=== PATIENT | female | born 1945 | race Caucasian/White ===

== ENCOUNTER 2016-10-26 05:50 | Day surgery (SDC) | payer MEDICARE, OTHER, MEDICAID ==
[2016-10-26] MEDS ORDERED: Sodium Chloride 0.9% 10 ML Syringe FLUSH PRN (06:00)
[2016-10-26] MEDS ORDERED: Dextrose 5%-0.45% NaCl 1,000 ML IV SCH (06:00)
[2016-10-26] MEDS ORDERED: fentaNYL 100 MCG/2 ML SDV ONE (06:17)
[2016-10-26] MEDS ORDERED: Midazolam 1 MG/ML 2 ML SDV ONE (06:17)
[2016-10-26] MEDS ORDERED: fentaNYL 100 MCG/2 ML SDV IV ONE ×3 (07:05→08:29)
[2016-10-26] MEDS ORDERED: Midazolam 1 MG/ML 2 ML SDV IV ONE ×6 (07:06→08:29)
--- NOTE | 2016-10-26 08:55 | OR ---
DATE: 10/26/2016 PROCEDURE: Total colonoscopy, NBI, and cold snare polypectomy. INSTRUMENT USED: CF-H180AL Olympus video colonoscope. PREMEDICATIONS: Fentanyl 100 mcg intravenous, Versed 3.5 mg intravenous. Nasal O2 cannula. The procedure was done under pulse oximetry, BP recording, and secured entrance monitor. INDICATION: The patient with rectal bleeding. Colonoscopic examination is done for detection of any polypoid lesions and removal, endoscopic hemostasis therapy if needed. DESCRIPTION OF PROCEDURE: Initial rectal exam was unremarkable. Rigid anoscopy showed small internal hemorrhoids without bleeding from them. The colonoscope was passed with ease up to the ileocecal area, photographs were taken of the normal appearing cecum, identified by double-bulged ileocecal folds. No bleeding was noted from any of the visualized areas at the commencement of the examination. There was quite a bit of liquid and some solid fecal material requiring aspiration. No stricture. No vascular ectasia. No large isolated ulcerations seen. No evidence of diffuse inflammatory bowel disease in the form of friability, contact bleeding, or ulcerations. Probing the proximal sides of folds and flexures, using adequate distention and clearing up the stool material, withdrawal of the scope was made. In the area of proximal transverse colon, a 3 mm sized benign-appearing polyp was noted, NBI views were obtained, photographs were taken, cold snare polypectomy was done, the tissue was retrieved and sent for histopathology. No bleeding was noted from any of the visualized areas at the completion of examination. IMPRESSION: 1. Internal hemorrhoids. 2. Diminutive colonic polyp. The patient tolerated the procedure well. [facility] /[id number]
[2016-10-26 09:04] VITALS: BP 119/56
--- NOTE | 2016-10-26 10:31 | LETTER ---
10/26/2016 HEIDI Diaz [facility] [address] [place] [address] RE: VEE LEE : 1945 Dear Ms. Fraga: Ms. Vee Lee had colonoscopic examination done this morning and she tolerated the procedure well. I herewith send a copy of the endoscopy note and photographs for your review. Thank you. Sincerely, [facility] /[id number]
== END 2016-10-26 09:32 | disposition home or self-care (01) ==
LOC: DL.ENDO 05:50
PROVIDERS: ATTEND Internal Medicine Gastroenterology
DX: D12.3 Benign neoplasm of transverse colon (principal); K64.8 Other hemorrhoids; E66.9 Obesity, unspecified; I10 Essential (primary) hypertension; E78.5 Hyperlipidemia, unspecified; K21.9 Gastro-esophageal reflux disease without esophagitis; E03.9 Hypothyroidism, unspecified; G43.909 Migraine, unspecified, not intractable, without status migrainosus; I48.91 Unspecified atrial fibrillation; F17.210 Nicotine dependence, cigarettes, uncomplicated; F32.9 Major depressive disorder, single episode, unspecified; Z95.0 Presence of cardiac pacemaker; Z90.49 Acquired absence of other specified parts of digestive tract; Z90.710 Acquired absence of both cervix and uterus; Z88.0 Allergy status to penicillin; Z79.01 Long term (current) use of anticoagulants; Z79.899 Other long term (current) drug therapy; Z80.0 Family history of malignant neoplasm of digestive organs
CPT/HCPCS: 45385; J2250; J3010; J7042; 88305

== ENCOUNTER 2016-10-27 05:27 | Day surgery (SDC) | payer MEDICARE, MEDICAID, OTHER ==
[~2016-10-27 05:27] MED LIST: Dextrose 5%-0.45% NaCl 1,000 ML IV SCH; Sodium Chloride 0.9% 10 ML Syringe FLUSH PRN
[2016-10-27] MEDS ORDERED: Midazolam 1 MG/ML 2 ML SDV ONE (05:45)
[2016-10-27] MEDS ORDERED: fentaNYL 100 MCG/2 ML SDV ONE (05:45)
[2016-10-27] MEDS ORDERED: fentaNYL 100 MCG/2 ML SDV IV ONE ×3 (06:23→06:47)
[2016-10-27] MEDS ORDERED: Midazolam 1 MG/ML 2 ML SDV IV ONE ×3 (06:24→06:47)
[2016-10-27 08:50] VITALS: BP 103/41
--- NOTE | 2016-10-27 09:02 | OR ---
DATE: 10/27/2016 PROCEDURE: Esophagogastroduodenoscopy and multiple pinch biopsies. INSTRUMENT USED: GIF-Q180 Olympus video panendoscope. PREMEDICATIONS: No oral topical anesthesia used. Fentanyl 100 mcg intravenous, Versed 2 mg intravenous. Nasal O2 cannula. The procedure was done under pulse oximetry, BP recording, and helper coordinator. INDICATION: The patient with long-standing heartburn, on PPI. Esophagogastroduodenoscopy is performed for detection of any active erosive lesions, Trevino esophagus and/or malignancy also under consideration, H. pylori status to be determined, endoscopic hemostasis therapy if needed. Has Hemoccult positive stools with colonoscopy negative for any bleeding areas. The scope was passed with ease. Adequate visualization of the esophagus was made from proximal to distal areas. No upper esophageal lesions identified. No distal esophageal stricture. No uphill or downhill esophageal varices. No Carmen- Son tear. No evidence of erosive esophagitis by Norman criteria. No esophageal polyp or tumor mass identified. Z-line was seen at around 40 cm distal to the oral verge, configuration consistent with grade 1 by ZAP classification. No proximal gastric varices noted. Gastric fundus examination by retroflexion showed no polypoid lesions. No gastric ulcer, malignant mass, or vascular ectasia identified. Duodenal bulb showed no ulcer. Visualized second part of the duodenum was unremarkable. Multiple pinch biopsies were taken from the gastric antrum and proximal body and sent for PyloriTek test for H. pylori, and if negative in an hour, tissue is to be sent for histopathology. No bleeding was noted from any of the visualized areas at the completion of the examination. Photographs were taken of the duodenal bulb, gastric antrum, fundus, and distal esophagus. IMPRESSION: Normal study. The patient tolerated the procedure well. [facility] /[id number] MARY
--- NOTE | 2016-10-27 10:04 | LETTER ---
10/27/2016 Tati Fraga NP [facility] [address] [place] [address] RE: VEE LEE BRANDON : 1945 Dear Ms. Baltazarfrancisco: Ms. Vee Lee had esophagogastroduodenoscopy done this morning, and she tolerated the procedure well. I herewith send a copy of the endoscopy note and photographs for your review. Thank you Sincerely, [facility] /[id number]
== END 2016-10-27 08:40 | disposition home or self-care (01) ==
LOC: DL.ENDO 05:27
PROVIDERS: ATTEND Internal Medicine Gastroenterology
DX: R12 Heartburn (principal); I10 Essential (primary) hypertension; E78.5 Hyperlipidemia, unspecified; E03.9 Hypothyroidism, unspecified; Z95.0 Presence of cardiac pacemaker; E66.9 Obesity, unspecified; Z88.0 Allergy status to penicillin; F17.210 Nicotine dependence, cigarettes, uncomplicated; Z90.49 Acquired absence of other specified parts of digestive tract; Z90.710 Acquired absence of both cervix and uterus; Z79.01 Long term (current) use of anticoagulants; F32.9 Major depressive disorder, single episode, unspecified; Z79.899 Other long term (current) drug therapy
CPT/HCPCS: 43239; 87077; 88305; J2250; J3010; J7042

== ENCOUNTER 2018-09-23 09:32 | Emergency (ER) | payer MEDICARE, OTHER ==
[2018-09-23 09:47] VITALS: BP 160/84; PULSE 60
[2018-09-23 10:15] LABS: ANION GAP 16.6; CHLORIDE,CL 106 mmol/L (101-111); SODIUM,NA 139 mmol/L (135-145)
--- NOTE | 2018-09-23 10:22 | EDM.PDOC ---
ED HPI GENERAL MEDICAL PROBLEM - General Stated Complaint: SERVERE CHEST PAIN [id number] Time Seen by Provider: 09/23/18 10:10 Source of Information: Reports: Patient History Limitations: Reports: No Limitations - History of Present Illness INITIAL COMMENTS - FREE TEXT/NARRATIVE: This 73 yo female patient reports to the ED with a 3 day history of left sided chest pain. The patient reports prior to the initial onset of pain, she was cleaning out her Jeep and doing things in the garage. The patient reports over the night her pain became unbearable. The patient did take Tylenol and currently reports her pain is a 4/10. 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 Left Chest Pain Score (Numeric/FACES): 5 - Related Data Allergies Allergy/AdvReac Type Severity Reaction Status Date / Time Penicillins Allergy Swelling Verified 10/27/16 05:30 Home Meds: Home Meds Amitriptyline [Elavil] 25 mg PO BEDTIME 06/19/15 [History] Levothyroxine 125 mcg PO DAILY 06/19/15 [History] [place]-3/DHA/Epa/Fish Oil [[place] 3 500 Softgel] 1 tab PO BID 06/19/15 [History] Omeprazole 20 mg PO DAILY 06/19/15 [History] Potassium Chloride 10 meq PO TID 06/19/15 [History] Verapamil [Verelan] 240 mg PO DAILY 06/19/15 [History] Warfarin [Coumadin] 2 mg PO BEDTIME 06/19/15 [History] atorvaSTATin [Lipitor] 40 mg PO BEDTIME 06/19/15 [History] Propranolol [Inderal LA] 160 mg PO DAILY 10/25/16 [History] Loratadine 10 mg PO DAILY 09/23/18 [History] rOPINIRole [Requip] 0.5 mg PO BEDTIME 09/23/18 [History] Past Medical History HEENT History: Reports: Impaired Vision Cardiovascular History: Reports: Afib, High Cholesterol, Hypertension, Pacemaker Respiratory History: Reports: None Gastrointestinal History: Reports: GERD Genitourinary History: Reports: None 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: Musculoskeletal History: Reports: Back Pain, Chronic, Other (See Below) Other Musculoskeletal History: HX OF LEFT ARM SURGERY Neurological History: Reports: None Psychiatric History: Reports: Anxiety, Depression Endocrine/Metabolic History: Reports: Hypothyroidism Hematologic History: Reports: None Immunologic History: Reports: None Oncologic (Cancer) History: Reports: None Dermatologic History: Reports: None - Infectious Disease History Infectious Disease History: Reports: Measles, Mumps - Past Surgical History HEENT Surgical History: Reports: None Cardiovascular Surgical History: Reports: Pacer Respiratory Surgical History: Reports: None GI Surgical History: Reports: Appendectomy, Cholecystectomy, Colonoscopy Female Surgical History: Reports: Hysterectomy Endocrine Surgical History: Reports: None Oncologic Surgical History: Reports: Biopsy of Breast Social & Family History - Family History Family Medical History: Noncontributory HEENT: - Tobacco Use Smoking Status *Q: Current Every Day Smoker Years of Tobacco use: 40 Packs/Tins Daily: 1 - Caffeine Use Caffeine Use: Reports: Tea - Recreational Drug Use Recreational Drug Use: No ED ROS GENERAL - Review of Systems Review Of Systems: ROS reveals no pertinent complaints other than HPI. ED EXAM, GENERAL - Physical Exam Exam: See Below Exam Limited By: No Limitations General Appearance: Alert, WD/WN, Moderate Distress, Obese Eye Exam: Bilateral Eye: EOMI, Normal Inspection, PERRL Ears: Normal External Exam, Normal Canal, Hearing Grossly Normal, Normal TMs Nose: Normal Inspection, Normal Mucosa, No Blood Throat/Mouth: Normal Inspection, Normal Lips, Normal Teeth, Normal Gums, Normal Oropharynx, Normal Voice, No Airway Compromise Head: Atraumatic, Normocephalic Neck: Normal Inspection, Supple, Non-Tender, Full Range of Motion Respiratory/Chest: No Respiratory Distress, Lungs Clear, Normal Breath Sounds, No Accessory Muscle Use, Chest Non-Tender Cardiovascular: Normal Peripheral Pulses, Regular Rate, Rhythm, No Edema, No Gallop, No JVD, No Murmur, No Rub GI/Abdominal: Normal Bowel Sounds, Soft, Non-Tender, No Organomegaly, No Distention, No Abnormal Bruit, No Mass (Female) Exam: Deferred Rectal (Female) Exam: Deferred Back Exam: Normal Inspection, Full Range of Motion, NT Extremities: Normal Inspection, Normal Range of Motion, Non-Tender, Normal Capillary Refill, No Pedal Edema Neurological: Alert, Oriented, CN II-XII Intact, Normal Cognition, Normal Gait, Normal Reflexes, No Motor/Sensory Deficits Psychiatric: Normal Affect, Normal Mood Skin Exam: Warm, Dry, Intact, Normal Color, No Rash Lymphatic: No Adenopathy Course - Vital Signs Last Recorded V/S: Last Vital Signs Temp 36.7 C 09/23/18 09:45 Pulse 60 09/23/18 09:45 Resp 12 09/23/18 09:45 BP 160/84 H 09/23/18 09:45 Pulse Ox 96 09/23/18 09:45 - Orders/Labs/Meds Orders: Active Orders 24 hr Category Date Time Status EKG Documentation Completion [RC] URGENT Care 09/23/18 09:33 Ordered Labs: Laboratory Tests 09/23/18 09/23/18 09/23/18 Range/Units 09:38 09:38 09:38 WBC 8.0 (5.0-10.0) 10^3/uL RBC 5.05 (4.2-5.4) 10^6/uL Hgb 15.6 (12.0-16.0) g/dL Hct 46.7 (37.0-47.0) % MCV 92.5 D (80-100) fL MCH 30.9 (27.0-34.0) pg MCHC 33.4 (33.0-35.0) g/dL Plt Count 266 (150-450) 10^3/uL Neut % (Auto) 50.3 (42.2-75.2) % Lymph % (Auto) 34.8 (20.5-50.1) % [place] % (Auto) 12.0 H (2-8) % Eos % (Auto) 2.6 (1.0-3.0) % Baso % (Auto) 0.3 (0.0-1.0) % Add Manual Diff Yes Neutrophils % (Manual) 60 (42-75) % Lymphocytes % (Manual) 23 (20-50) % Atypical Lymphs % Not Reportable Monocytes % (Manual) 16 H (2-8) % Eosinophils % (Manual) 1 (1-3) % PT 24.9 H (9.0-12.0) SEC INR 2.6 H (0.9-1.2) D-Dimer, Quantitative < 100 (0-400) ng/mL Sodium 139 (135-145) mmol/L Potassium 4.6 (3.6-5.0) mmol/L Chloride 106 (101-111) mmol/L Carbon Dioxide 21.0 (21.0-31.0) mmol/L Anion Gap 16.6 BUN 12 (7-18) mg/dL Creatinine 0.7 (0.6-1.3) mg/dL Est Cr Clr Drug Dosing 61.81 mL/min Estimated GFR (MDRD) > 60 BUN/Creatinine Ratio 17.14 Glucose 119 H (74-105) mg/dL Calcium 8.9 (8.4-10.2) mg/dl Total Bilirubin 1.6 H (0.2-1.0) mg/dL AST 37 (10-42) IU/L ALT 21 (10-60) IU/L Alkaline Phosphatase 105 (42-121) IU/L Troponin I < 0.02 (0.00-0.02) ng/ml Total Protein 7.7 (6.7-8.2) g/dl Albumin 4.1 (3.2-5.5) g/dl Globulin 3.6 Albumin/Globulin Ratio 1.14 Departure - Departure Time of Disposition: 11:05 Disposition: Home, Self-Care 01 Condition: Fair Clinical Impression: Left-sided chest wall pain, Non-cardiac chest pain Instructions: Chest Wall Pain, [id number], Nonspecific Chest Pain, Easy-to- Read Forms: ED Department Discharge Care Plan Goals: The patient was advised of the examination, lab, EKG and x-ray results during the visit. The patient was discharged with a script for [place] (5/325) #8 to take 1 by mouth every 6 hours as needed for pain. If the patient has any additional symptoms or concerns, the patient should either return to the emergency department or visit her primary care facility. - My Orders Last 24 Hours: My Active Orders 09/23/18 09:33 EKG Documentation Completion [RC] URGENT - Assessment/Plan Last 24 Hours: My Active Orders 09/23/18 09:33 EKG Documentation Completion [RC] URGENT
--- NOTE | 2018-09-23 10:40 | CR ---
Clinical history: 73-year-old female chest pain. Interpretation: Upright AP portable chest film with cardiac pacemaker and external pvc monitor leads (pacer leads appear intact). Necklace artifact. Normal cardiac silhouette without cephalization of flow, signs of alveolar edema or dependent pleural fluid accumulation. Reasonable inspiratory effort obese female. No lung mass or hilar lymphadenopathy. No lobar pneumonia, atelectasis or collapse. No pneumothorax. CONCLUSION: Cardiac pacemaker. No acute cardiopulmonary abnormality.
== END 2018-09-23 11:17 | disposition home or self-care (01) ==
LOC: DL.ED 09:32
DX: R07.89 Other chest pain (principal); F17.210 Nicotine dependence, cigarettes, uncomplicated; I48.91 Unspecified atrial fibrillation; I10 Essential (primary) hypertension; E78.00 Pure hypercholesterolemia, unspecified; K21.9 Gastro-esophageal reflux disease without esophagitis; F41.9 Anxiety disorder, unspecified; F32.9 Major depressive disorder, single episode, unspecified; Z79.899 Other long term (current) drug therapy; Z88.0 Allergy status to penicillin
CPT/HCPCS: 36415; 71045; 80053; 84484; 85025; 85379; 85610; 93005; 99284; 99285-25

== ENCOUNTER 2019-10-26 14:28 | Emergency (ER) | payer MEDICARE, OTHER ==
[2019-10-26 14:36] VITALS: BP 164/79; PULSE 70
--- NOTE | 2019-10-26 15:34 | EDM.PDOC ---
Scribed by Annika Ireland 10/26/19 1533 for Manju Plaza NP ED HPI GENERAL MEDICAL PROBLEM - General Chief Complaint: Lower Extremity Injury/Pain Stated Complaint: right leg pain Time Seen by Provider: 10/26/19 14:48 Source of Information: Reports: Patient, RN, RN Notes Reviewed History Limitations: Reports: No Limitations - History of Present Illness INITIAL COMMENTS - FREE TEXT/NARRATIVE: Patient presents to ER with complaint of pain in right knee, right ankle, right arm/shoulder pain. Patient states she fell off a 2 step ladder on ( possibly Sunday). States pain to right arm is improving. Right knee is improving, but not the right ankle. No history of blood clots. Has been ambulating on the right ankle. Denies hitting head or getting knocked out. States lost her balance, did not get dizzy when she fell. 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 Right Ankle Pain Score (Numeric/FACES): 5 - Related Data Allergies Allergy/AdvReac Type Severity Reaction Status Date / Time Penicillins Allergy Swelling Verified 10/26/19 14:43 Home Meds: Home Meds Amitriptyline [Elavil] 25 mg PO BEDTIME 06/19/15 [History] Levothyroxine 125 mcg PO DAILY 06/19/15 [History] [place]-3/DHA/Epa/Fish Oil [[place] 3 500 Softgel] 1 tab PO BID 06/19/15 [History] Omeprazole 20 mg PO DAILY 06/19/15 [History] Potassium Chloride 10 meq PO TID 06/19/15 [History] Verapamil [Verelan] 240 mg PO DAILY 06/19/15 [History] Warfarin [Coumadin] 2 mg PO BEDTIME 06/19/15 [History] atorvaSTATin [Lipitor] 40 mg PO BEDTIME 06/19/15 [History] Propranolol [Inderal LA] 160 mg PO DAILY 10/25/16 [History] Loratadine 10 mg PO DAILY 09/23/18 [History] rOPINIRole [Requip] 0.5 mg PO BEDTIME 04/22/19 [History] Past Medical History HEENT History: Reports: Impaired Vision Cardiovascular History: Reports: Afib, High Cholesterol, Hypertension, Pacemaker Respiratory History: Reports: None Gastrointestinal History: Reports: GERD Genitourinary History: Reports: None 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 History: Reports: Musculoskeletal History: Reports: Back Pain, Chronic, Other (See Below) Other Musculoskeletal History: HX OF LEFT ARM SURGERY Neurological History: Reports: None Psychiatric History: Reports: Anxiety, Depression Endocrine/Metabolic History: Reports: Hypothyroidism Hematologic History: Reports: None Immunologic History: Reports: None Oncologic (Cancer) History: Reports: None Dermatologic History: Reports: None - Infectious Disease History Infectious Disease History: Reports: Measles, Mumps - Past Surgical History HEENT Surgical History: Reports: None Cardiovascular Surgical History: Reports: Pacer Respiratory Surgical History: Reports: None GI Surgical History: Reports: Appendectomy, Cholecystectomy, Colonoscopy Female Surgical History: Reports: Hysterectomy Endocrine Surgical History: Reports: None Oncologic Surgical History: Reports: Biopsy of Breast Social & Family History - Family History Family Medical History: Noncontributory HEENT: - Tobacco Use Smoking Status *Q: Current Every Day Smoker Years of Tobacco use: 40 Packs/Tins Daily: 0.5 - Caffeine Use Caffeine Use: Reports: None - Recreational Drug Use Recreational Drug Use: No Review of Systems - Review of Systems Review Of Systems: Comprehensive ROS is negative, except as noted in HPI. ED EXAM, GENERAL - Physical Exam Exam: See Below Exam Limited By: No Limitations General Appearance: Alert, WD/WN, No Apparent Distress Eye Exam: Bilateral Eye: EOMI, Normal Inspection, PERRL Ears: Normal External Exam, Normal Canal, Hearing Grossly Normal, Normal TMs Nose: Normal Inspection, Normal Mucosa, No Blood Throat/Mouth: Normal Inspection, Normal Lips, Normal Teeth, Normal Gums, Normal Oropharynx, Normal Voice, No Airway Compromise Head: Atraumatic, Normocephalic Neck: Normal Inspection, Supple, Non-Tender, Full Range of Motion Respiratory/Chest: Other (diminished breath sounds) Cardiovascular: Normal Peripheral Pulses, Regular Rate, Rhythm, No Edema, No Gallop, No JVD, No Murmur, No Rub GI/Abdominal: Normal Bowel Sounds, Soft, Non-Tender, No Organomegaly, No Distention, No Abnormal Bruit, No Mass (Female) Exam: Deferred Rectal (Female) Exam: Deferred Back Exam: Normal Inspection, Full Range of Motion, NT Extremities: Other (decreased range of motion right ankle/right foot and swelling of right ankle. ) Neurological: Alert, Oriented, CN II-XII Intact, Normal Cognition, Normal Gait, Normal Reflexes, No Motor/Sensory Deficits Psychiatric: Normal Affect, Normal Mood Skin Exam: Other (Ecchymosis/erythema right dital lower leg lateral. Ecchymosis inside right elbow. ) Lymphatic: No Adenopathy Course - Vital Signs Last Recorded V/S: Last Vital Signs Temp 97.4 F 10/26/19 14:31 Pulse 70 10/26/19 14:31 Resp 18 10/26/19 14:31 BP 164/79 H 10/26/19 14:31 Pulse Ox 98 10/26/19 14:31 - Radiology Interpretation Free Text/Narrative:: Right foot xray: FINDINGS: Bones/joints: Degenerative changes of the foot are present. There is no evidence of acute fracture. There is no evidence of joint malalignment or dislocation. Calcaneal spur is noted. Soft tissues: There are no soft tissue masses or fluid collections. Dorsal soft tissue swelling is present. IMPRESSION: 1. No evidence of acute fracture. 2. No evidence of acute dislocation. 3. Dorsal soft tissue swelling is present. Thank you for allowing us to participate in the care of your patient. Dictated and Authenticated by: Dany Chun DO 10/26/2019 3:23 PM Central Time ([place] & [place]) Right ankle xray: FINDINGS: Bones/joints: There is no evidence of acute fracture. There is no evidence of joint malalignment or dislocation. Calcaneal spur. Soft tissues: Soft tissue swelling is present. There are no soft tissue masses or fluid collections. IMPRESSION: 1. Soft tissue swelling is present. 2. No evidence of acute fracture. 3. No evidence of acute dislocation. Thank you for allowing us to participate in the care of your patient. Dictated and Authenticated by: Dany Chun DO 10/26/2019 3:24 PM Central Time ([place] & [place]) See rad report Departure - Departure Time of Disposition: 15:31 Disposition: Home, Self-Care 01 Condition: Good Clinical Impression: Sprain of ankle, right Qualifiers: Encounter type: initial encounter Involved ligament of ankle: unspecified ligament Qualified Code(s): S93.401A - Sprain of unspecified ligament of right ankle, initial encounter - Discharge Information *PRESCRIPTION DRUG MONITORING PROGRAM REVIEWED*: No *COPY OF PRESCRIPTION DRUG MONITORING REPORT IN PATIENT ELIZABETH: No Instructions: How to Use Cold Therapy, [id number], Ankle Sprain, [id number] , Elastic Bandage and RICE Therapy Forms: ED Department Discharge Additional Instructions: Wear ankle brace until swelling is decreased and pain is lessened May use Tylenol as directed for pain Ice the area as tolerated Elevate the ankle as much as possible Follow up with your primary care facility if no improvement Sepsis Event Note - Evaluation Sepsis Screening Result: No Definite Risk - Focused Exam Vital Signs: Vital Signs Temp Pulse Resp BP Pulse Ox 10/26/19 14:31 97.4 F 70 18 164/79 H 98 Date Exam was Performed: 10/26/19 Time Exam was Performed: 15:33 I have read and agree with the documentation that has been completed regarding this visit. By signing this record, I attest that the documentation was completed in my physical presence and is an accurate record of the encounter.
== END 2019-10-26 15:36 | disposition home or self-care (01) ==
LOC: DL.ED 14:28
DX: S93.401A Sprain of unspecified ligament of right ankle, initial encounter (principal); S50.01XA Contusion of right elbow, initial encounter; I48.91 Unspecified atrial fibrillation; E78.00 Pure hypercholesterolemia, unspecified; I10 Essential (primary) hypertension; Z95.0 Presence of cardiac pacemaker; K21.9 Gastro-esophageal reflux disease without esophagitis; F41.9 Anxiety disorder, unspecified; F32.9 Major depressive disorder, single episode, unspecified; F17.210 Nicotine dependence, cigarettes, uncomplicated; Z88.0 Allergy status to penicillin; Z79.899 Other long term (current) drug therapy; Z79.01 Long term (current) use of anticoagulants; W11.XXXA Fall on and from ladder, initial encounter
CPT/HCPCS: 73610-RT; 73630-RT; 99283-25

== ENCOUNTER 2021-10-19 14:57 | Emergency (ER) | payer MEDICARE, OTHER ==
[2021-10-19] MEDS ORDERED: HYDROmorphone 0.5 MG/0.5 ML Syringe IVPUSH ONE (15:33)
[2021-10-19] MEDS ORDERED: HYDROmorphone 0.5 MG/0.5 ML Syringe IV ONE (15:46)
[2021-10-19 15:56] LABS: ANION GAP 12.6 mEq/L (7-13); CHLORIDE,CL 108 mmol/L (98-107); SODIUM,NA 146 mmol/L (136-145)
== END 2021-10-19 16:17 ==
LOC: DL.ED 14:57
DX: S72.001A Fracture of unspecified part of neck of right femur, initial encounter for closed fracture (principal); I48.91 Unspecified atrial fibrillation; E78.00 Pure hypercholesterolemia, unspecified; I10 Essential (primary) hypertension; K21.9 Gastro-esophageal reflux disease without esophagitis; E03.9 Hypothyroidism, unspecified; Z95.0 Presence of cardiac pacemaker; Z88.0 Allergy status to penicillin; Z79.899 Other long term (current) drug therapy; Z88.1 Allergy status to other antibiotic agents; W18.30XA Fall on same level, unspecified, initial encounter
CPT/HCPCS: 36415; 73502; 80053; 81001; 85025; 85610; 87086; 87088; 87186; 96374; 99284; 99285; J1170

== ENCOUNTER 2021-10-25 08:18 | Inpatient (IN) | payer MEDICARE ==
[2021-10-25] MEDS ORDERED: Lidocaine 5% 700 MG Patch TOP PRN (14:27)
[2021-10-25] MEDS ORDERED: Albuterol 6.7 GM Inhaler INH PRN (14:27)
[2021-10-25] MEDS ORDERED: Polyethylene Glycol 3350 Powder 17 GM Packet PO PRN (14:36)
[2021-10-25] MEDS ORDERED: Docusate Sodium 100 MG Cap PO PRN (14:36)
[2021-10-25] MEDS ORDERED: Bisacodyl 5 MG Tab PO PRN (14:36)
[2021-10-25] MEDS ORDERED: Ondansetron 4 MG/2 ML SDV IVPUSH PRN (14:36)
[2021-10-25] MEDS ORDERED: Acetaminophen 325 MG Tab PO PRN (14:36)
[2021-10-25] MEDS ORDERED: Warfarin 2 MG Tab PO ONE (16:00)
[2021-10-25] MEDS: traMADol 50 MG Tab PO PRN (20:40)
[2021-10-25] MEDS: Losartan 50 MG Tab PO SCH (20:40)
[2021-10-25] MEDS: Propranolol 20 MG Tab PO SCH (20:40)
[2021-10-25] MEDS: rOPINIRole 0.25 MG Tab PO SCH (20:40)
[2021-10-25] MEDS: Temazepam 15 MG Cap PO PRN (20:41)
[2021-10-25] MEDS: Calcium Carbonate/Vitamin D3 1250 MG-5 MCG Tab PO SCH (20:41)
[2021-10-25] MEDS: Enoxaparin 80 MG/0.8 ML Syringe SUBCUT SCH (20:41)
[2021-10-25] MEDS: atorvaSTATin 20 MG Tab PO SCH (20:41)
[2021-10-25] MEDS: Amitriptyline 25 MG Tab PO SCH (20:41)
[2021-10-26] MEDS: Levothyroxine 150 MCG Tab PO SCH (05:51)
[2021-10-26] MEDS: Omeprazole 20 MG Cap.CR PO SCH (05:51)
[2021-10-26 06:35] LABS: ANION GAP 12.6 mEq/L (7-13)
[2021-10-26] MEDS: Propranolol 20 MG Tab PO SCH ×2 (08:12→21:20)
[2021-10-26] MEDS: Loratadine 10 MG Tab PO SCH (08:13)
[2021-10-26] MEDS: Potassium Chloride 10 MEQ Tab.ER PO SCH (08:13)
[2021-10-26] MEDS: Oxybutynin 5 MG Tab.ER PO SCH (08:13)
[2021-10-26] MEDS: Verapamil 240 MG Tab.ER PO SCH (08:13)
[2021-10-26] MEDS: Enoxaparin 80 MG/0.8 ML Syringe SUBCUT SCH ×2 (08:14→21:21)
[2021-10-26] MEDS ORDERED: Warfarin 2 MG Tab PO SCH (09:00)
[2021-10-26] MEDS: traMADol 50 MG Tab PO PRN ×3 (09:10→18:20)
[2021-10-26] MEDS: Calcium Carbonate/Vitamin D3 1250 MG-5 MCG Tab PO SCH ×3 (09:11→21:21)
[2021-10-26] MEDS: Losartan 50 MG Tab PO SCH (21:20)
[2021-10-26] MEDS: Amitriptyline 25 MG Tab PO SCH (21:21)
[2021-10-26] MEDS: rOPINIRole 0.25 MG Tab PO SCH (21:21)
[2021-10-26] MEDS: atorvaSTATin 20 MG Tab PO SCH (21:21)
[2021-10-26] MEDS: Temazepam 15 MG Cap PO PRN (21:21)
[2021-10-27] MEDS: Omeprazole 20 MG Cap.CR PO SCH (06:08)
[2021-10-27] MEDS: Levothyroxine 150 MCG Tab PO SCH (06:08)
[2021-10-27] MEDS: Potassium Chloride 10 MEQ Tab.ER PO SCH (08:51)
[2021-10-27] MEDS: Verapamil 240 MG Tab.ER PO SCH (08:52)
[2021-10-27] MEDS: Loratadine 10 MG Tab PO SCH (08:52)
[2021-10-27] MEDS: Oxybutynin 5 MG Tab.ER PO SCH (08:53)
[2021-10-27] MEDS: Propranolol 20 MG Tab PO SCH ×2 (08:53→21:01)
[2021-10-27] MEDS: Enoxaparin 80 MG/0.8 ML Syringe SUBCUT SCH ×2 (08:54→21:04)
[2021-10-27] MEDS: Calcium Carbonate/Vitamin D3 1250 MG-5 MCG Tab PO SCH ×3 (10:38→21:01)
[2021-10-27] MEDS: FISH OIL 1000 MG PO SCH ×2 (10:44→21:05)
[2021-10-27] MEDS ORDERED: Warfarin 2 MG Tab PO ONE (14:00)
[2021-10-27] MEDS: Acetaminophen 500 MG Tab PO PRN (21:02)
[2021-10-27] MEDS: atorvaSTATin 20 MG Tab PO SCH (21:03)
[2021-10-27] MEDS: rOPINIRole 0.25 MG Tab PO SCH (21:03)
[2021-10-27] MEDS: Amitriptyline 25 MG Tab PO SCH (21:03)
[2021-10-27] MEDS: Losartan 50 MG Tab PO SCH (21:04)
[2021-10-27] MEDS: VERAPAMIL 120 MG PO SCH (21:05)
[2021-10-28] MEDS: Omeprazole 20 MG Cap.CR PO SCH (05:39)
[2021-10-28] MEDS: Levothyroxine 150 MCG Tab PO SCH (05:39)
[2021-10-28] MEDS: Verapamil 240 MG Tab.ER PO SCH (09:07)
[2021-10-28] MEDS: Potassium Chloride 10 MEQ Tab.ER PO SCH (09:07)
[2021-10-28] MEDS: Loratadine 10 MG Tab PO SCH (09:08)
[2021-10-28] MEDS: Enoxaparin 80 MG/0.8 ML Syringe SUBCUT SCH ×2 (09:08→21:46)
[2021-10-28] MEDS: Propranolol 20 MG Tab PO SCH ×2 (09:08→21:44)
[2021-10-28] MEDS: Oxybutynin 5 MG Tab.ER PO SCH (09:08)
[2021-10-28] MEDS: FISH OIL 1000 MG PO SCH ×2 (09:11→21:46)
[2021-10-28] MEDS: Calcium Carbonate/Vitamin D3 1250 MG-5 MCG Tab PO SCH ×3 (09:56→21:56)
[2021-10-28] MEDS: Acetaminophen 500 MG Tab PO PRN (09:56)
[2021-10-28] MEDS ORDERED: Warfarin 2 MG Tab PO ONE (14:00)
[2021-10-28] MEDS: Amitriptyline 25 MG Tab PO SCH (21:44)
[2021-10-28] MEDS: atorvaSTATin 20 MG Tab PO SCH (21:44)
[2021-10-28] MEDS: Losartan 50 MG Tab PO SCH (21:44)
[2021-10-28] MEDS: VERAPAMIL 120 MG PO SCH (21:47)
[2021-10-28] MEDS: rOPINIRole 0.25 MG Tab PO SCH (21:47)
[2021-10-29] MEDS: Omeprazole 20 MG Cap.CR PO SCH (05:32)
[2021-10-29] MEDS: Levothyroxine 150 MCG Tab PO SCH (05:32)
[2021-10-29] MEDS: Potassium Chloride 10 MEQ Tab.ER PO SCH (09:51)
[2021-10-29] MEDS: Calcium Carbonate/Vitamin D3 1250 MG-5 MCG Tab PO SCH ×4 (09:52→20:40)
[2021-10-29] MEDS: Loratadine 10 MG Tab PO SCH (09:52)
[2021-10-29] MEDS: Propranolol 20 MG Tab PO SCH ×2 (09:52→20:40)
[2021-10-29] MEDS: Enoxaparin 80 MG/0.8 ML Syringe SUBCUT SCH ×2 (09:52→20:41)
[2021-10-29] MEDS: Oxybutynin 5 MG Tab.ER PO SCH (09:52)
[2021-10-29] MEDS: Verapamil 240 MG Tab.ER PO SCH (10:00)
[2021-10-29] MEDS: FISH OIL 1000 MG PO SCH ×2 (10:00→20:41)
[2021-10-29] MEDS: Acetaminophen 500 MG Tab PO PRN (12:10)
[2021-10-29] MEDS ORDERED: Warfarin 2 MG Tab PO ONE (14:00)
[2021-10-29] MEDS: Amitriptyline 25 MG Tab PO SCH (20:40)
[2021-10-29] MEDS: rOPINIRole 0.25 MG Tab PO SCH (20:40)
[2021-10-29] MEDS: Losartan 50 MG Tab PO SCH (20:40)
[2021-10-29] MEDS: atorvaSTATin 20 MG Tab PO SCH (20:40)
[2021-10-29] MEDS: VERAPAMIL 120 MG PO SCH (20:41)
[2021-10-30] MEDS: Levothyroxine 150 MCG Tab PO SCH (05:30)
[2021-10-30] MEDS: Omeprazole 20 MG Cap.CR PO SCH (05:30)
[2021-10-30] MEDS: Propranolol 20 MG Tab PO SCH ×2 (08:12→20:28)
[2021-10-30] MEDS: Enoxaparin 80 MG/0.8 ML Syringe SUBCUT SCH ×2 (08:12→20:28)
[2021-10-30] MEDS: Loratadine 10 MG Tab PO SCH (08:13)
[2021-10-30] MEDS: Verapamil 240 MG Tab.ER PO SCH (08:13)
[2021-10-30] MEDS: Potassium Chloride 10 MEQ Tab.ER PO SCH (08:13)
[2021-10-30] MEDS: Oxybutynin 5 MG Tab.ER PO SCH (08:13)
[2021-10-30] MEDS: FISH OIL 1000 MG PO SCH ×2 (08:15→20:33)
[2021-10-30] MEDS ORDERED: ALENDRONATE SODIUM 35 MG PO SCH (09:00)
[2021-10-30] MEDS: Calcium Carbonate/Vitamin D3 1250 MG-5 MCG Tab PO SCH ×3 (10:15→20:28)
[2021-10-30] MEDS ORDERED: Warfarin 5 MG Tab PO ONE (14:00)
[2021-10-30] MEDS: Acetaminophen 500 MG Tab PO PRN (20:26)
[2021-10-30] MEDS: atorvaSTATin 20 MG Tab PO SCH (20:28)
[2021-10-30] MEDS: Amitriptyline 25 MG Tab PO SCH (20:29)
[2021-10-30] MEDS: rOPINIRole 0.25 MG Tab PO SCH (20:29)
[2021-10-30] MEDS: Losartan 50 MG Tab PO SCH (20:30)
[2021-10-30] MEDS: VERAPAMIL 120 MG PO SCH (20:33)
[2021-10-31] MEDS: Omeprazole 20 MG Cap.CR PO SCH (06:16)
[2021-10-31] MEDS: Levothyroxine 150 MCG Tab PO SCH (06:16)
[2021-10-31] MEDS: Enoxaparin 80 MG/0.8 ML Syringe SUBCUT SCH ×2 (08:31→21:02)
[2021-10-31] MEDS: Propranolol 20 MG Tab PO SCH ×2 (08:31→21:02)
[2021-10-31] MEDS: Potassium Chloride 10 MEQ Tab.ER PO SCH (08:31)
[2021-10-31] MEDS: Verapamil 240 MG Tab.ER PO SCH (08:32)
[2021-10-31] MEDS: Oxybutynin 5 MG Tab.ER PO SCH (08:32)
[2021-10-31] MEDS: Loratadine 10 MG Tab PO SCH (08:32)
[2021-10-31] MEDS: FISH OIL 1000 MG PO SCH ×2 (08:38→21:03)
[2021-10-31] MEDS: Calcium Carbonate/Vitamin D3 1250 MG-5 MCG Tab PO SCH ×3 (09:58→21:02)
[2021-10-31] MEDS: Acetaminophen 500 MG Tab PO PRN ×2 (12:20→21:04)
[2021-10-31] MEDS ORDERED: Loperamide 2 MG Cap PO PRN (13:46)
[2021-10-31] MEDS ORDERED: Warfarin 2 MG Tab PO ONE (14:00)
[2021-10-31] MEDS: metroNIDAZOLE 250 MG Tab PO SCH ×2 (14:30→21:04)
[2021-10-31] MEDS: Losartan 50 MG Tab PO SCH (21:02)
[2021-10-31] MEDS: Amitriptyline 25 MG Tab PO SCH (21:02)
[2021-10-31] MEDS: atorvaSTATin 20 MG Tab PO SCH (21:02)
[2021-10-31] MEDS: VERAPAMIL 120 MG PO SCH (21:04)
[2021-10-31] MEDS: rOPINIRole 0.25 MG Tab PO SCH (21:04)
[2021-11-01] MEDS: Levothyroxine 150 MCG Tab PO SCH (05:24)
[2021-11-01] MEDS: Omeprazole 20 MG Cap.CR PO SCH (05:24)
[2021-11-01] MEDS: metroNIDAZOLE 250 MG Tab PO SCH (05:24)
[2021-11-01 08:09] VITALS: BP 139/58; PULSE 66
[2021-11-01] MEDS: Potassium Chloride 10 MEQ Tab.ER PO SCH (09:06)
[2021-11-01] MEDS: Loratadine 10 MG Tab PO SCH (09:06)
[2021-11-01] MEDS: Oxybutynin 5 MG Tab.ER PO SCH (09:06)
[2021-11-01] MEDS: Propranolol 20 MG Tab PO SCH (09:06)
[2021-11-01] MEDS: Verapamil 240 MG Tab.ER PO SCH (09:06)
[2021-11-01] MEDS: Calcium Carbonate/Vitamin D3 1250 MG-5 MCG Tab PO SCH (09:06)
[2021-11-01] MEDS: FISH OIL 1000 MG PO SCH (09:08)
[2021-11-01] MEDS ORDERED: Warfarin 2 MG Tab PO ONE (14:00)
== END 2021-11-01 11:15 | disposition home or self-care (01) | DRG 560 ==
LOC: DL.MS 08:18
PROVIDERS: ADMIT Internal Medicine; ATTEND Internal Medicine
DX: S72.001D Fracture of unspecified part of neck of right femur, subsequent encounter for closed fracture with routine healing (principal); I48.20 Chronic atrial fibrillation, unspecified; E66.9 Obesity, unspecified; I10 Essential (primary) hypertension; E78.5 Hyperlipidemia, unspecified; K21.9 Gastro-esophageal reflux disease without esophagitis; H54.7 Unspecified visual loss; E78.00 Pure hypercholesterolemia, unspecified; R32 Unspecified urinary incontinence; G89.29 Other chronic pain; M54.9 Dorsalgia, unspecified; F41.9 Anxiety disorder, unspecified; F32.A Depression, unspecified; E03.9 Hypothyroidism, unspecified; Z88.0 Allergy status to penicillin; Z95.0 Presence of cardiac pacemaker; Z90.49 Acquired absence of other specified parts of digestive tract; Z90.710 Acquired absence of both cervix and uterus; Z98.890 Other specified postprocedural states; Z79.899 Other long term (current) drug therapy; Z79.890 Hormone replacement therapy; Z79.01 Long term (current) use of anticoagulants; Z68.36 Body mass index [BMI] 36.0-36.9, adult
CPT/HCPCS: 36415; 80048; 85027; 85610; 87493; 97110-GO; 97110-GP; 97116-GP; 97161-GP; 97166-GO; 97530-GO; 97535-GO; A9270-GY; J1650

== ENCOUNTER 2022-03-18 01:52 | Emergency (ER) | payer MEDICARE, OTHER ==
[2022-03-18] MEDS ORDERED: Propranolol 80 MG Cap.ER PO ONE (01:53)
== END 2022-03-18 15:08 | disposition home or self-care (01) ==
LOC: DL.ED 01:52
DX: I10 Essential (primary) hypertension (principal); Z91.138 Patient's unintentional underdosing of medication regimen for other reason; F17.210 Nicotine dependence, cigarettes, uncomplicated; Z88.0 Allergy status to penicillin
CPT/HCPCS: 99281; A9270-GY

== ENCOUNTER 2023-05-03 16:35 | Emergency (ER) | payer MEDICARE, OTHER ==
[2023-05-03] MEDS ORDERED: Sodium Chloride 0.9% 10 ML Syringe FLUSH PRN (16:45)
[2023-05-03 16:56] LABS: BASOPHILS PERCENT AUTO 0.3 % (0.0-1.0); EOSINOPHILS PERCENT AUTO 1.4 % (1.0-3.0); HEMATOCRIT 49.3 % (37.0-47.0); HEMOGLOBIN 16.6 g/dL (12.0-16.0); LYMPHOCYTES PERCENT AUTO 47.1 % (20.5-50.1); MEAN CORPUSCULAR HEMOGLOBIN 31.4 pg (27.0-34.0); MEAN CORPUSCULAR HGB CONC 33.7 g/dL (33.0-35.0); MEAN CORPUSCULAR VOLUME 93.2 fL (80-100); MONOCYTES PERCENT AUTO 11.1 % (2-8); NEUTROPHILS PERCENT AUTO 40.1 % (42.2-75.2); PLATELET COUNT,PLT 263 10^3/uL (150-450); RED BLOOD CELL COUNT 5.29 10^6/uL (4.2-5.4); WHITE BLOOD CELL COUNT,WBC 11.1 10^3/uL (5.0-10.0)
[2023-05-03 17:12] VITALS: BP 135/89; PULSE 93
[2023-05-03] MEDS ORDERED: Ondansetron 4 MG/2 ML SDV IV ONE (17:14)
[2023-05-03] MEDS ORDERED: Sodium Chloride 0.9% 500 ML IV SCH (17:15)
[2023-05-03] MEDS ORDERED: Diltiazem 25 MG/5 ML SDV IVPUSH ONE (17:17)
[2023-05-03] MEDS ORDERED: Famotidine 20 MG/2 ML SDV IVPUSH ONE (17:17)
[2023-05-03] MEDS ORDERED: Morphine 2 MG/ML SYRINGE IVPUSH ONE (17:17)
[2023-05-03 17:42] LABS: INR 2.8 (0.9-1.2); PROTHROMBIN TIME 27.5 SEC (9.0-12.0); PTT,PARTIAL THROMBOPLSTIN TIME 31.4 SEC (22.0-34.0)
[2023-05-03 17:45] LABS: A/G RATIO 1.1; ALBUMIN 3.6 g/dL (3.4-5.0); ANION GAP 11.6 mEq/L (7-13); BILIRUBIN TOTAL 0.8 mg/dL (0.2-1.0); BUN/CREATININE RATIO 11.2 (No establ ref range); CALCIUM 8.9 mg/dL (8.5-10.1); CREATININE 0.8 mg/dL (0.55-1.02); EST CRCL DRUG DOSING (CG) 60.57 mL/min; POTASSIUM,K 3.6 mmol/L (3.5-5.1)
[2023-05-03] MEDS ORDERED: Aluminum Hydroxide/Magnesium Hydroxide/Simethicone Susp 30 ML Cup PO ONE (19:09)
[2023-05-03] MEDS: Lidocaine 2% Viscous Solution 15 ML UD PO ONE (19:14)
== END 2023-05-03 19:17 | disposition home or self-care (01) ==
LOC: DL.ED 16:35
DX: G43.901 Migraine, unspecified, not intractable, with status migrainosus (principal); K21.00 Gastro-esophageal reflux disease with esophagitis, without bleeding; E78.00 Pure hypercholesterolemia, unspecified; I10 Essential (primary) hypertension; E03.9 Hypothyroidism, unspecified; E66.9 Obesity, unspecified; Z68.31 Body mass index [BMI] 31.0-31.9, adult; Z88.0 Allergy status to penicillin; Z79.01 Long term (current) use of anticoagulants; Z79.899 Other long term (current) drug therapy; Z90.49 Acquired absence of other specified parts of digestive tract; Z90.710 Acquired absence of both cervix and uterus
CPT/HCPCS: 36415; 70450; 71045; 80053; 83690; 83880; 84484; 85025; 85610; 85730; 93005; 93010; 96361; 96374; 96375; 99284; 99284-25; A9270-GY; J2270; J2405; J3490; J7040